=== PATIENT | female | born 1980 | race Caucasian/White ===

== ENCOUNTER 2018-01-31 20:02 | Emergency (ER) | payer SELFPAY ==
--- NOTE | 2018-01-31 20:26 | ED ---
GI/ HPI - HPI Summary HPI Summary: A 37 y/o F presents to ED with c/o severe L-sided abd pain wrapping around to her back onset 2 hours ago. Per mother: sx are very similar to the patient's previous episode of kidney stones which occurred 2 years ago during her . Associated sx: vomiting. - History of Current Complaint Chief Complaint: EDFlankPain Time Seen by Provider: 01/31/18 20:22 Stated Complaint: ABD AND BACK PAIN Hx Obtained From: Patient, Family/Seam Press Operator Onset/Duration: Started Hours Ago, Atraumatic, Still Present Timing: Constant Severity: Severe Current Severity: Severe Pain Intensity: 10 - out of 10 Location of Pain: Radiates to: - wraps around flank to back, LUQ, LLQ Pain Characteristics: Sharp, Colicy Associated Signs and Symptoms: Positive: Vomiting - Allergy/Home Medications Allergies/Adverse Reactions: Allergies Allergy/AdvReac Type Severity Reaction Status Date / Time No Known Allergies Allergy Verified 01/31/18 20:06 PMH/Surg Hx/FS Hx/Imm Hx Previously Healthy: No History: Reports: Hx Kidney Stones Neurological History: Denies: Hx Dementia Infectious Disease History: No Infectious Disease History: Reports: Traveled Outside the [place] in Last 30 Days - Family History Known Family History: Positive: Non-Contributory - Social History Occupation: Unemployed - OTHER Lives: With Family Review of Systems Positive: Abdominal Pain, Vomiting Positive: flank pain Musculoskeletal: Other - pos: back pain All Other Systems Reviewed And Are Negative: Yes Physical Exam - Summary Physical Exam Summary: Appearance: Well-appearing, Well-nourished, great deal of colicky pain Skin: Warm, dry, no obvious rash Eyes: sclera anicteric, no conjunctival pallor ENT: mucous membranes moist, pharynx appears normal Neck: Supple, nontender Respiratory: Clear to auscultation, no signs of respiratory distress Cardiovascular: Normal S1, S2. No murmurs. Normal distal pulses in tibial and radial bilaterally. Abdomen: Soft, nontender, normal active bowel sounds present Musculoskeletal: Normal, Strength/ROM Intact Neurological: A&Ox3, awake and alert, mentation is normal, speech is fluent and appropriate Psychiatric: affect is normal, does not appear anxious or depressed Triage Information Reviewed: Yes Vital Signs On Initial Exam: Initial Vitals Temp Pulse Resp BP Pulse Ox 97.3 F 72 20 130/102 100 01/31/18 20:05 01/31/18 20:05 01/31/18 20:05 01/31/18 20:05 01/31/18 20:05 Vital Signs Reviewed: Yes Diagnostics - Vital Signs Vital Signs Temp Pulse Resp BP Pulse Ox 01/31/18 20:05 97.3 F 72 20 130/102 100 - Laboratory Result Diagrams: 01/31/18 21:04 01/31/18 21:04 Lab Statement: Any lab studies that have been ordered have been reviewed, and results considered in the medical decision making process. Re-Evaluation - Re-Evaluation 1 Re-Evaluation Time: 22:01 Change: Improved Comment: Discussing lab and UA results with pt and family. GIGU Course/Dx - Course Course Of Treatment: Pt is a 37 y/o F presenting with severe L-sided abd pain wrapping around to her back onset 2 hours ago. Sx are very similar to the patient's previous episode of kidney stones which occurred 2 years ago during her . Associated sx: vomiting. Lab work is unremarkable. UA results show 2+ ketones. Pt will be signed-out to Dr. Ojeda at shift change pending CT results and dispo. - Diagnoses Provider Diagnoses: Dermoid tumor Discharge - Sign-Out/Discharge Documenting (check all that apply): Sign-Out Patient Signing out patient TO: Georgette Ojeda - CT and dispo - Discharge Plan Condition: Stable Disposition: HOME Prescriptions: Ondansetron ODT TAB* [Zofran 4 MG Odt TAB*] 8 mg PO Q6H PRN #14 tab.odt PRN Reason: Nausea oxyCODONE/Acetamin 5/325 MG* [Percocet 5/325 TAB*] 2 tab PO Q4H PRN #10 tab MDD 4 tabs PRN Reason: Pain oxyCODONE/Acetamin 5/325 MG* [Percocet 5/325 TAB*] 2 tab PO Q4H PRN #14 tab MDD 6 PRN Reason: Pain Patient Education Materials: Acute Abdominal Pain (ED), Abdominal Pain (ED) Referrals: Millie Gómez MD [Medical Doctor] - 2 Days Additional Instructions: FOLLOW UP WITH OTM CONSULTANT IN 1-2 DAYS. TAKE MEDICATIONS PRESCRIBED. RETURN TO ED FOR ANY NEW OR WORSENING SYMPTOMS. - Billing Disposition and Condition Condition: STABLE Disposition: Home - Attestation Statements Document Initiated by Tiarra: Yes Documenting Scribe: Demetra Fisher Provider For Whom Tiarra is Documenting (Include Credential): Dr. Vincent Hammonds MD Scribe Attestation: Demetra Avila, scribed for Dr. Vincent Hammonds MD on 02/02/18 at 1016. Scribe Documentation Reviewed: Yes Provider Attestation: The documentation as recorded by the tiarra, Demetra Fisher accurately reflects the service I personally performed and the decisions made by me, Dr. Vincent Hammonds MD Status of Scribe Document: Viewed
[2018-01-31] MEDS ORDERED: Morphine VIAL* 4 MG/ML VIAL (1 ml vial) IV ONE ×2 (20:27→20:50)
[2018-01-31] MEDS ORDERED: NS 0.9% 1000 ML* 1,000 ML IV ONE (20:27)
[2018-01-31] MEDS ORDERED: Ondansetron INJ* 2 MG/ML VIAL IV ONE (20:27)
[2018-01-31] MEDS ORDERED: Ketorolac INJ* 30 MG/ML 1 ML VIAL IV PUSH ONE (20:27)
[2018-01-31 21:16] LABS: ABS Basophils 0 10^3/ul (0-0.2); ABS Eosinophils 0 10^3/ul (0-0.6); ABS Lymphocytes 1.5 10^3/ul (1.0-4.8); ABS Monocytes 0.3 10^3/ul (0-0.8); ABS Neutrophils 8.1 10^3/ul (1.5-7.7); ABS Nucleated RBC 0 10^3/ul; Eosinophil % 0.3 %; Hematocrit 40 % (35-47); Hemoglobin 13.5 g/dl (12.0-16.0); Lymphocyte % 14.9 %; Mean Corpuscular HGB Conc 34 g/dl (31-36); Mean Corpuscular Hemoglobin 30 pg (27-31); Mean Corpuscular Volume 89 fL (80-97); Mean Platelet Volume 7.9 fL (7.4-10.4); Nucleated Red Blood Cells % 0; Platelet Count 271 10^3/ul (150-450); Red Blood Count 4.49 10^6/ul (4.00-5.40); Red Cell Distribution Width 12 % (10.5-15)
[2018-01-31 21:30] LABS: BUN/Creatinine Ratio 15.2 (8-20); Calcium 8.8 mg/dL (8.6-10.3); EGFR Non-African American 101.9 (>60); Potassium 3.2 mmol/L (3.5-5.0)
[2018-01-31] MEDS ORDERED: oxyCODONE/Acetamin 5/325 MG* TAB PO PRN (21:33)
[2018-01-31] MEDS ORDERED: Ondansetron ODT TAB* 4 MG ONE (21:50)
[2018-01-31 21:59] LABS: Urine Appearance Turbid; Urine Bilirubin Negative (Negative); Urine Blood Negative (Negative); Urine Color Yellow; Urine Glucose Negative (Negative); Urine Ketones 2+ (Negative); Urine Nitrite Negative (Negative); Urine Protein Negative (Negative); Urine Specific Gravity 1.016 (1.010-1.030); Urine Urobilinogen Negative (Negative)
--- NOTE | 2018-01-31 22:37 | ED ---
Progress - Progress Note Progress Note: CT A/P Impression: 1. Ovarian dermoid measuring 4.8 x 4.2 x 4.3 cm and is just to the left of midline in the posterior pelvis. 2. Otherwise negative CT abdomen/pelvis. No renal or ureteral calculi are evident and there is no evidence of obstructive uropathy. ED PHYSICIAN REVIEWED THIS RADIOLOGY REPORT. Re-Evaluation - Re-Evaluation 1 Re-Evaluation Time: 22:01 Change: Improved Comment: Discussing lab and UA results with pt and family. Course/Dx - Course Course Of Treatment: A 37 y/o female presents to the ED c/o severe left sided abdominal pain radiating to her back. A CT A/P revealed 1. Ovarian dermoid measuring 4.8 x 4.2 x 4.3 cm and is just to the left of midline in the posterior pelvis. 2. Otherwise negative CT abdomen/pelvis. No renal or ureteral calculi are evident and there is no evidence of obstructive uropathy. In the ED course, the patient received Percocet, Toradol, Morphine, Zofran, and IV fluids. Patient will be discharged with a diagnosis of dermoid tumor. Patient will be sent home with a prescription for Percocet and Zofran. Patient is to take medications as prescribed. Patient is follow up with INSERT OPERATOR in 1-2 days. Patient is to return to ED for any new or worsening symptoms. Patient is agreeable with this plan. - Diagnoses Provider Diagnoses: Dermoid tumor Discharge - Sign-Out/Discharge Documenting (check all that apply): Patient Departure - DISCHARGE - Discharge Plan Condition: Stable Disposition: HOME Prescriptions: Ondansetron ODT TAB* [Zofran 4 MG Odt TAB*] 8 mg PO Q6H PRN #14 tab.odt PRN Reason: Nausea oxyCODONE/Acetamin 5/325 MG* [Percocet 5/325 TAB*] 2 tab PO Q4H PRN #10 tab MDD 4 tabs PRN Reason: Pain Patient Education Materials: Acute Abdominal Pain (ED), Abdominal Pain (ED) Referrals: Millie Gómez MD [Medical Doctor] - 2 Days Additional Instructions: FOLLOW UP WITH INSERT OPERATOR IN 1-2 DAYS. TAKE MEDICATIONS PRESCRIBED. RETURN TO ED FOR ANY NEW OR WORSENING SYMPTOMS. - Attestation Statements Document Initiated by Scribe: Yes Documenting Scribe: Justus Tejada Provider For Whom Scribe is Documenting (Include Credential): Georgette Ojeda MD Scribe Attestation: I, Justus Tejada, scribed for Georgette Ojeda MD on 02/01/18 at 0004. Status of Scribe Document: Ready
[2018-02-01] MEDS ORDERED: Potassium Chlor TAB* 20 MEQ TAB.ER PO ONE (00:01)
[2018-02-01] MEDS ORDERED: oxyCODONE/Acetamin 5/325 MG* TAB PO ONE (00:01)
[2018-02-01 00:36] VITALS: BP 118/66
--- NOTE | 2018-02-01 10:00 | UC ---
- Progress Note Progress Note: Pharmacy called saying there is a problem with the prescription. Re-Evaluation - Re-Evaluation 1 Re-Evaluation Time: 22:01 Change: Improved Comment: Discussing lab and UA results with pt and family. Course/Dx - Course Course Of Treatment: Dr. Hammonds is attempting to fix the problem with prescription - Diagnoses Provider Diagnoses: Dermoid tumor Discharge - Sign-Out/Discharge Documenting (check all that apply): Patient Departure - Discharge Plan Condition: Stable Disposition: HOME Prescriptions: Ondansetron ODT TAB* [Zofran 4 MG Odt TAB*] 8 mg PO Q6H PRN #14 tab.odt PRN Reason: Nausea oxyCODONE/Acetamin 5/325 MG* [Percocet 5/325 TAB*] 2 tab PO Q4H PRN #10 tab MDD 4 tabs PRN Reason: Pain oxyCODONE/Acetamin 5/325 MG* [Percocet 5/325 TAB*] 2 tab PO Q4H PRN #14 tab MDD 6 PRN Reason: Pain Patient Education Materials: Acute Abdominal Pain (ED), Abdominal Pain (ED) Referrals: Millie Gómez MD [Medical Doctor] - 2 Days Additional Instructions: FOLLOW UP WITH HEAV[employer] E[employer]IPMENT RENTAL MANAGER IN 1-2 DAYS. TAKE MEDICATIONS PRESCRIBED. RETURN TO ED FOR ANY NEW OR WORSENING SYMPTOMS. - Billing Disposition and Condition Condition: STABLE Disposition: Home
== END 2018-02-01 00:35 | disposition home or self-care (01) ==
LOC: ED 20:02
DX: D27.9 Benign neoplasm of unspecified ovary (principal); R10.9 Unspecified abdominal pain; Z87.442 Personal history of urinary calculi
CPT/HCPCS: 36415; 74176; 80048; 81003; 85025; 96374; 96375; 96376; 99283; A9270-GY; J1885; J2270; J2405